=== PATIENT | female | born 1980 | race Caucasian/White ===

== ENCOUNTER 2021-06-27 05:41 | Day surgery (SDC) | payer OTHER ==
[2021-06-25 08:19] VITALS: BMI 27.3
[2021-06-27 13:51] VITALS: TEMP 97.8
[2021-06-27 14:12] VITALS: BP 119/76; PULSE 77
== END 2021-06-27 15:50 | disposition home or self-care (01) ==
LOC: JASU-ENDO 05:41
PROVIDERS: ATTEND Internal Medicine Gastroenterology
PROC: 0DJD8ZZ Inspection of Lower Intestinal Tract, Via Natural or Artificial Opening Endoscopic (ICD-10-PCS; principal; 2021-06-27 13:00)
DX: K59.00 Constipation, unspecified (principal); E11.9 Type 2 diabetes mellitus without complications
CPT/HCPCS: 81025; 82962